=== PATIENT | female | born 1940 | race Two or more races ===

== ENCOUNTER → 2016-12-16 | Outpatient (CLI) | payer OTHER | LOC: MMPC 09:00 | PROVIDERS: ATTEND Nurse Practitioner Family | DX: R42 Dizziness and giddiness (principal) | CPT/HCPCS: 99214; G0463 ==

== ENCOUNTER → 2016-12-21 | Outpatient (CLI) | payer OTHER | LOC: MMPC 09:00 | PROVIDERS: ATTEND Nurse Practitioner Family | DX: R42 Dizziness and giddiness (principal) | CPT/HCPCS: 99213; G0463 ==